=== PATIENT | male | born 1970 | race Caucasian/White ===

== ENCOUNTER 2020-06-23 15:44 | Emergency (ER) | payer OTHER ==
[~2020-06-23] VITALS: Ht 198.1 cm; Wt 145.1 kg
[2020-06-23] MEDS ORDERED: TYLENOL325 M1 PO (18:15)
[2020-06-23] MEDS ORDERED: CYCLOBENZAPRINE10 MG PO (18:15)
[2020-06-23] MEDS ORDERED: NAPROXEN250 MG PO (18:15)
== END 2020-06-23 18:13 | disposition home or self-care (01) ==
LOC: ED 15:44
DX: M47.812 Spondylosis without myelopathy or radiculopathy, cervical region (principal); S16.1XXA Strain of muscle, fascia and tendon at neck level, initial encounter; V89.2XXA Person injured in unspecified motor-vehicle accident, traffic, initial encounter; Y93.89 Activity, other specified; Y92.89 Other specified places as the place of occurrence of the external cause; Y99.8 Other external cause status

== ENCOUNTER → 2020-07-11 | Outpatient (CLI) | payer OTHER ==
[~2020-07-11] MED LIST: CYCLOBENZAPRINE10 MG PO; NAPROXEN250 MG PO; TYLENOL325 M1 PO
== END | disposition home or self-care (01) ==
LOC: US 07:30
PROVIDERS: ATTEND Internal Medicine
DX: E04.1 Nontoxic single thyroid nodule (principal)